=== PATIENT | male | born 1945 | race Caucasian/White ===

== ENCOUNTER 2019-10-25 13:22 | Outpatient (REF) | payer MEDICARE, SELFPAY ==
[2019-10-27 21:44] LABS: SARS-CoV-2 RNA Undetected (Undetected); SARS-CoV-2 Specimen Source Nasopharynx
== END 2019-10-25 13:42 ==
LOC: NCHCN 13:22
PROVIDERS: Visit Provider Physician Assistant
DX: Z20.828 Contact with and (suspected) exposure to other viral communicable diseases (principal)
CPT/HCPCS: U0003

== ENCOUNTER 2020-01-14 01:21 | Outpatient (CLI) | payer MEDICARE, OTHER, SELFPAY ==
--- NOTE | 2020-01-14 | DI.RAD_ITS ---
EXAM: XR KNEE LT 3V AP,LAT,BEATRIZ CLINICAL HISTORY: LT KNEE JOINT PAIN,M25.562,PROGRESSIVE STIFFNESS. TECHNIQUE: 2D digital imaging was performed. COMPARISON: No exams were available for comparison FINDINGS: BONES: No acute fracture is present. No bony destructive lesion is seen. JOINTS: There is moderate narrowing of the medial femoral tibial joint and moderate periarticular spu rring. Spurring is also noted from the tibial spines. There is spurring at the patellofemoral joint . No joint effusion is seen. SOFT TISSUE: Normal. IMPRESSION: Degenerative changes, greatest of the medial femoral tibial joint. DATA REPOSITORY: RADIATION DOSE DELIVERED:
== END 2020-01-14 01:41 ==
PROVIDERS: Visit Provider Physician Assistant
DX: M17.12 Unilateral primary osteoarthritis, left knee (principal)
CPT/HCPCS: 73562

== ENCOUNTER 2020-03-04 22:36 | Outpatient (REF) | payer MEDICARE, OTHER, SELFPAY ==
[2020-03-07 10:11] LABS: COVID-19 RT-PCR Result NEGATIVE (Negative)
== END 2020-03-04 22:56 ==
LOC: NCHCN 22:36
PROVIDERS: PCP Physician Assistant; Visit Provider Nurse Practitioner Family
DX: Z20.828 Contact with and (suspected) exposure to other viral communicable diseases (principal)
CPT/HCPCS: U0003

== ENCOUNTER 2024-07-10 15:08 | Outpatient (CLI) | payer MEDICARE, OTHER, SELFPAY ==
--- NOTE | 2024-07-10 | DI.RAD_ITS ---
Exam(s) XR RIBS RT W PA LAT CHEST CLINICAL HISTORY: Pleurodynia, R07.81. COMPARISON: No exams were available for comparison TECHNIQUE:: PA and lateral views of the chest and four views of the right ribs were performed. FINDINGS: LUNGS:Clear. No pleural abnormality seen. HEART: Normal size. MEDIASTINUM: Moderate to large size hiatal hernia. BONES: Mild midthoracic compression fracture. Degenerative disc changes. Biconvex thoracolumbar sco liosis. There is a question a nondisplaced fracture at the tip of the right 9th rib . No bony destr uctive lesion is seen. IMPRESSION: 1. Question of a nondisplaced fracture at the end of the right 9th rib. 2. No acute pulmonary findings. Moderate to large hiatal hernia.
== END 2024-07-10 15:28 ==
LOC: DI 15:08
PROVIDERS: PCP Physician Assistant; Visit Provider Nurse Practitioner Family
DX: R07.81 Pleurodynia (principal)
CPT/HCPCS: 71046; 71100